=== PATIENT | male | born 1985 | race Caucasian/White ===

== ENCOUNTER 2023-11-14 19:48 | Emergency (ER) | payer BC, SELFPAY ==
[2023-11-14 19:51] VITALS: BP 143/83
--- NOTE | 2023-11-14 20:14 | ED.GENMED ---
History of Present Illness
General
Chief Complaint: Musculo-Skeletal Complaint
Source: patient
Exam Limitations: none
Time Seen by Provider: 11/14/23 20:08
Travel History
Have you had any contact with someone who has COVID-19?: No
Do you have any symptoms of coronavirus? Fever > 100 degrees, chills, cough, shortness of breath, sore throat, loss of taste or smell, muscle aches, or headache?: No
History of Present Illness
History of Present Illness:
See MDM
Past History
Past History
ED Past Medical History: None
ED Past Surgical History: None
Social History
Tobacco: Non-smoker
Alcohol: None
Phy Exam
Physical Exam
Physical Exam:
See MDM
Course
Orders/Labs/Results
Orders:
Orders
11/14/23 19:53
CR Shoulder, Trauma - Right Urgent
Comment:
Reason For Exam: injury
Vital Signs
Initial and Last Documented VS:
Initial Vital Signs
Temp Pulse Resp BP Pulse Ox
98.6 F 98 20 143/83 98
11/14/23 19:51 11/14/23 19:51 11/14/23 19:51 11/14/23 19:51 11/14/23 19:51
Last Documented Vital Signs
Temp Pulse Resp BP Pulse Ox
98.6 F 98 20 143/83 98
11/14/23 19:51 11/14/23 19:51 11/14/23 19:51 11/14/23 19:51 11/14/23 19:51
MDM/Problems Addressed
Differential Diagnosis Includes:
HPI and MDM Narrative:
38-year-old male presenting with right shoulder injury while he was doing [employer]. He is right-hand dominant. He denies numbness or tingling
X-ray performed from triage. X-ray consistent with AC joint separation. Patient placed in sling and discussed follow-up with orthopedics
Physical exam
General: Well appearing and non-toxic
HEENT: protecting airway
Neck: appears supple
CV: No evidence of cyanosis
Resp: No accessory muscle use
Abd: Non-distended
Extremities: High riding distal aspect of right clavicle. No step-off noted. Distal extremity neurovascular intact
Neuro: alert
Psych: Normal affect
Skin: Intact
Problems Addressed including Acute and Chronic Conditions affecting care:
1. Right AC joint separation
Acuity: acute
Prognosis: stable
Details: Patient placed in a sling and discussed follow-up with orthopedics
Differential Diagnosis (but not limited to): Shoulder dislocation, AC joint separation, fracture
Drug therapy (if applicable): OTC meds, please see d/c instruction regarding Rx drugs
Amount and/or Complexity of Data Reviewed
Clinical info obtained from: Patient
External data reviewed: N/A
Labs I independently reviewed (but not limited to): N/A
Radiology: X-ray independently reviewed: Shoulder x-ray consistent with AC joint separation
Pulse Ox: not hypoxic
EKG independently reviewed: N/A
Sliver Chopper: N/A
Critical Care: N/A
Risk of Complication:
Social Determinants of health: Good social support
Discussed with other providers: N/A
Escalation of Care includes Admit/Obs: After being observed in the Emergency Department, pt stable for discharge.
Occasional wrong word or 'sound a like' substitutions may have occurred due to the inherent limitations of voice recognition software. Read the chart carefully and recognize, using context, where substitutions have occurred.
*Critical Care Note
Total Time (30-74mins, 75-104mins- exclusive of procedures): Not Applicable
ED Attending Note
-
Portions of this chart may have been created with voice recognition software.� Occasional wrong word or��sound alike� substitutions may have occurred due to the inherent limitations of voice recognition software.
Discharge Plan
Departure
Patient Disposition: Home (Routine Discharge)
Date of Disposition: 11/14/23
Time of Disposition: 20:16
Patient with high blood pressure during this ER visit?: Yes
Discharge Problem:
Acromioclavicular joint separation
Instructions: BLOOD PRESSURE
Prescriptions:
New
diclofenac potassium 50 mg tablet
50 mg PO BID Qty: 20 0RF
oxycodone 5 mg tablet
5 mg PO Q8H PRN (Reason: Pain) Qty: 14 0RF
Referrals:
Vishal Yu MD [Active] -
Stand Alone Forms: Return to Work
Activity Restrictions/Additional Instructions:
Please return for any worsening symptoms.
You may return at any time if you have further concerns.
Please call the orthopedist first thing tomorrow for evaluation.
Thank you for choosing [facility].
Interventions
Interventions:
*Risk Screen - Suicide Last Done: 11/14/23 19:51
*General Assessment Last Done: 11/14/23 19:51
*Neglect/Abuse Screening Last Done: 11/14/23 19:51
Discharge Date and Time
Print Language: SERBIAN
[2023-11-14] MEDS: TORADOL 30 MG IM (20:25)
== END 2023-11-14 20:44 | disposition home or self-care (01) ==
LOC: EMR 19:48
PROVIDERS: EMERGENCY PHYSICIAN Student in an Organized Health Care Education/Training Program
DX: S43.101A Unspecified dislocation of right acromioclavicular joint, initial encounter (principal); W19.XXXA Unspecified fall, initial encounter
CPT/HCPCS: 99284; 96372; 73030